=== PATIENT | female | born 1955 | race Caucasian/White ===

== ENCOUNTER → 2016-09-22 | Outpatient (CLI) | payer OTHER ==
[2016-09-22 09:43] LABS: Basophils # (auto) 0 uL; Basophils % (auto) 0.5 % (0.0-2.0); Eosinophils # (auto) 0.5 uL; Eosinophils % (auto) 6.4 % (0.0-7.0); Hematocrit 38.2 % (36.0-46.0); Hemoglobin 12.7 g/dL (12.2-16.2); Lymphocytes # (auto) 2.1 uL; Lymphocytes % (auto) 25.1 % (10.0-50.0); Mean Corpuscular Hemoglobin 30.6 pg (28.0-32.0); Mean Corpuscular Hgb Conc. 33.2 g/dL (32.0-36.0); Mean Corpuscular Volume 92.2 fL (80.0-100.0); Mean Platelet Volume 9.1 fL (7.4-10.4); Monocytes # (auto) 0.6 uL; Monocytes % (auto) 7.9 % (0.0-12.0); Neutrophils % (auto) 60.1 % (37.0-80.0); Platelet Count (auto) 264 10^3/uL (140-450); Red Cell Distribution Width 14.3 % (11.6-16.0); White Blood Cell 8.2 10^3/uL (4.4-10.8)
[2016-09-22 10:20] LABS: Albumin 3.8 g/dL (3.4-5.0); BUN/Creatinine Ratio 19.3; Bilirubin, Total 0.3 mg/dL (0.2-1.0); Calcium 9.1 mg/dL (8.5-10.1); Potassium 3.1 mmol/L (3.5-5.1); Total Protein 6.9 g/dL (6.4-8.2)
== END | disposition home or self-care (01) ==
LOC: LAB 09:07
PROVIDERS: ATTEND Internal Medicine
DX: E11.9 Type 2 diabetes mellitus without complications (principal); I10 Essential (primary) hypertension; F32.9 Major depressive disorder, single episode, unspecified
CPT/HCPCS: 36415; 80053; 80061; 82043; 83036; 84443; 85025

== ENCOUNTER → 2016-10-19 | Outpatient (CLI) | payer OTHER ==
[2016-10-19 12:01] LABS: Albumin 3.9 g/dL (3.4-5.0); BUN/Creatinine Ratio 17.4; Bilirubin, Total 0.5 mg/dL (0.2-1.0); Potassium 3.5 mmol/L (3.5-5.1); Total Protein 7.9 g/dL (6.4-8.2)
== END | disposition home or self-care (01) ==
LOC: LAB 10:28
PROVIDERS: ATTEND Internal Medicine
DX: E11.21 Type 2 diabetes mellitus with diabetic nephropathy (principal); E78.5 Hyperlipidemia, unspecified
CPT/HCPCS: 36415; 80053; 80061; 83036

== ENCOUNTER → 2016-12-21 | Outpatient (CLI) | payer OTHER ==
[2016-12-21 13:31] LABS: Basophils # (auto) 0 uL; Basophils % (auto) 0.5 % (0.0-2.0); CONDITION Y; Eosinophils # (auto) 0.4 uL; Eosinophils % (auto) 4.3 % (0.0-7.0); Hematocrit 38.5 % (36.0-46.0); Hemoglobin 12.9 g/dL (12.2-16.2); Lymphocytes # (auto) 1.8 uL; Lymphocytes % (auto) 21.4 % (10.0-50.0); Mean Corpuscular Hemoglobin 31.1 pg (28.0-32.0); Mean Corpuscular Hgb Conc. 33.4 g/dL (32.0-36.0); Mean Platelet Volume 9.3 fL (7.4-10.4); Monocytes # (auto) 0.6 uL; Neutrophils # (auto) 5.7 uL; Neutrophils % (auto) 66.8 % (37.0-80.0); Platelet Count (auto) 274 10^3/uL (140-450); Red Cell Distribution Width 13.5 % (11.6-16.0); White Blood Cell 8.5 10^3/uL (4.4-10.8)
[2016-12-21 13:58] LABS: Albumin 3.6 g/dL (3.4-5.0); BUN/Creatinine Ratio 23.5; Bilirubin, Total 0.2 mg/dL (0.2-1.0); Calcium 8.9 mg/dL (8.5-10.1); Potassium 3.4 mmol/L (3.5-5.1); Total Protein 6.7 g/dL (6.4-8.2)
== END | disposition home or self-care (01) ==
LOC: LAB 13:15
PROVIDERS: ATTEND Internal Medicine
DX: R79.0 Abnormal level of blood mineral (principal); Z11.2 Encounter for screening for other bacterial diseases
CPT/HCPCS: 36415; 80053; 84443; 85025; 86038; 86704; 86705; 86706; 86708; 86803

== ENCOUNTER 2017-02-23 06:09 | Inpatient (IN) | payer OTHER ==
[2017-02-21 12:41] LABS: Basophils # (auto) 0 uL; Basophils % (auto) 0.4 % (0.0-2.0); CONDITION Y; Eosinophils # (auto) 0.5 uL; Eosinophils % (auto) 6.2 % (0.0-7.0); Hematocrit 38.5 % (36.0-46.0); Lymphocytes # (auto) 1.6 uL; Lymphocytes % (auto) 18.5 % (10.0-50.0); Mean Corpuscular Hemoglobin 31.1 pg (28.0-32.0); Mean Corpuscular Hgb Conc. 33.7 g/dL (32.0-36.0); Mean Corpuscular Volume 92.4 fL (80.0-100.0); Mean Platelet Volume 10.3 fL (7.4-10.4); Monocytes # (auto) 0.6 uL; Monocytes % (auto) 7.1 % (0.0-12.0); Neutrophils % (auto) 67.8 % (37.0-80.0); Platelet Count (auto) 238 10^3/uL (140-450); Red Cell Distribution Width 13.4 % (11.6-16.0); White Blood Cell 8.9 10^3/uL (4.4-10.8)
[2017-02-21 13:03] LABS: Albumin 3.6 g/dL (3.4-5.0); BUN/Creatinine Ratio 28.4; Bilirubin, Total 0.3 mg/dL (0.2-1.0); Calcium 9.5 mg/dL (8.5-10.1); Potassium 3.5 mmol/L (3.5-5.1)
[2017-02-21 13:11] LABS: INR 0.92 (0.9-1.15); Partial Thromboplastin Time 24.3 sec (22.64-33.71)
[~2017-02-23] VITALS: Ht 162.6 cm; Wt 110.2 kg
[2017-02-23] MEDS ORDERED: ceFAZolin 1GM/50ML D5W 50 ML IV ONE (06:15)
[2017-02-23] MEDS ORDERED: POVIDONE IODINE 10 % TOPICAL OINT 30GM TOP ONE (06:51)
[2017-02-23] MEDS ORDERED: MEPERIDINE HCL (50 MG/ML) 1 ML VIAL ONE (06:55)
[2017-02-23] MEDS ORDERED: ROCURONIUM 10MG/ML 10ML VIAL IV ONE (06:55)
[2017-02-23] MEDS ORDERED: NEOSTIGMINE 1 MG/ML INJ (10mg/10ML VIAL) ONE (06:55)
[2017-02-23] MEDS ORDERED: KETOROLAC TROMETH 60MG/2ML VIAL IM ONE (06:55)
[2017-02-23] MEDS ORDERED: MORPHINE SULFATE ONE (06:55)
[2017-02-23] MEDS ORDERED: SODIUM CHLORIDE LOCK 10 ML ONE (06:55)
[2017-02-23] MEDS ORDERED: MIDAZOLAM HCL 1MG/1ML-2 ML VIAL ONE (06:55)
[2017-02-23] MEDS ORDERED: GLYCOPYRROLATE 0.2 MG/ML 1ML VIAL ONE (06:55)
[2017-02-23] MEDS ORDERED: ONDANSETRON HCL 4 MG/2 ML VIAL ONE (06:55)
[2017-02-23] MEDS ORDERED: fentaNYL CITRATE 100 MCG/2 ML VL ONE (06:55)
[2017-02-23] MEDS ORDERED: PROPOFOL 10 MG/ML 20 ML IV ONE (06:55)
[2017-02-23] MEDS ORDERED: METOCLOPRAMIDE HCL 5MG/ml INJ 2ml VIAL IV ONE (07:30)
[2017-02-23] MEDS: KETOROLAC TROMETH 30 MG/ML 1ML VIAL IV ONE ×2 (07:30→09:17)
[2017-02-23] MEDS ORDERED: hydrALAZINE HCL 20 MG/ML VL ONE (08:01)
[2017-02-23] MEDS ORDERED: MORPHINE SULF INJ 2 MG/ML SYRINGE 1ML IV PRN (08:15)
[2017-02-23] MEDS ORDERED: NITROGLYCERIN 0.4 MG SL TAB SL PRN (08:15)
[2017-02-23] MEDS: HYDROmorphone HCL 2 MG/ML VL IV PRN ×4 (08:33→09:04)
[2017-02-23] MEDS ORDERED: DOXAPRAM HCL 20 MG/ML 20ML VIAL INJ IV ONE (09:39)
[2017-02-23 11:30] VITALS: BP 125/67
[2017-02-23] MEDS: SODIUM CHLORIDE 0.9% 1,000 ML IV SCH (11:45)
[2017-02-23] MEDS ORDERED: ONDANSETRON HCL 4 MG/2 ML VIAL IV PRN (11:45)
[2017-02-23] MEDS ORDERED: DEXTROSE (50%) 50ML SYRG IV PRN (11:45)
[2017-02-23] MEDS ORDERED: LISINOPRIL 10 MG TAB PO ONE (12:00)
[2017-02-23] MEDS: ACCU-CHEK COMFORT CURVE STRIP VI SCH ×2 (12:00→18:00)
[2017-02-23] MEDS ORDERED: buPROPion HCL 100 MG TAB PO ONE (12:00)
[2017-02-23] MEDS: InsuLIN REG 1unit/0.01ml Soln (100units/ml) SC SCH ×2 (12:00→18:00)
[2017-02-23 13:11] VITALS: BP 125/67
[2017-02-23] MEDS: MORPHINE SULF INJ 2 MG/ML SYRINGE 1ML IV PRN ×2 (14:59→19:59)
[2017-02-23] MEDS ORDERED: GLIP-115 (16:50)
[2017-02-23] MEDS ORDERED: ATEN50TA (16:50)
[2017-02-23] MEDS ORDERED: LISI-285 (16:50)
[2017-02-23] MEDS ORDERED: POTA10TA51 (16:50)
[2017-02-23] MEDS ORDERED: TRAZ150T79 (16:50)
[2017-02-23 17:00] VITALS: BP 129/67
[2017-02-23] MEDS: HYDROcodone-ACET 5/325MG TAB PO PRN (17:43)
[2017-02-23] MEDS: buPROPion HCL 100 MG TAB PO SCH (18:52)
[2017-02-23 22:00] VITALS: BP 147/68
[2017-02-24] MEDS: HYDROcodone-ACET 5/325MG TAB PO PRN (00:36)
[2017-02-24] MEDS ORDERED: POTA10TA51 PO (02:03)
[2017-02-24] MEDS ORDERED: GLIP-115 PO (02:03)
[2017-02-24] MEDS ORDERED: ATEN50TA PO (02:03)
[2017-02-24] MEDS ORDERED: LISI20TA10 PO (02:03)
[2017-02-24] MEDS ORDERED: TRAZ150T79 PO (02:03)
[2017-02-24] MEDS: SODIUM CHLORIDE 0.9% 1,000 ML IV SCH (04:26)
[2017-02-24 05:00] VITALS: BP 146/98
[2017-02-24] MEDS: InsuLIN REG 1unit/0.01ml Soln (100units/ml) SC SCH ×2 (05:45)
[2017-02-24] MEDS: ACCU-CHEK COMFORT CURVE STRIP VI SCH ×2 (05:45)
[2017-02-24] MEDS: MORPHINE SULF INJ 2 MG/ML SYRINGE 1ML IV PRN ×2 (05:52→10:25)
[2017-02-24] MEDS: buPROPion HCL 100 MG TAB PO SCH (06:05)
[2017-02-24 06:25] LABS: Basophils # (auto) 0 uL; Basophils % (auto) 0.1 % (0.0-2.0); Eosinophils # (auto) 0 uL; Eosinophils % (auto) 0.1 % (0.0-7.0); Hematocrit 36.7 % (36.0-46.0); Hemoglobin 12.5 g/dL (12.2-16.2); Lymphocytes # (auto) 2.1 uL; Lymphocytes % (auto) 14.6 % (10.0-50.0); Mean Corpuscular Hemoglobin 31.1 pg (28.0-32.0); Mean Corpuscular Hgb Conc. 33.9 g/dL (32.0-36.0); Mean Corpuscular Volume 91.6 fL (80.0-100.0); Mean Platelet Volume 9.8 fL (6.9-10.8); Monocytes % (auto) 7.1 % (0.0-12.0); Neutrophils # (auto) 11.2 uL; Neutrophils % (auto) 78.1 % (37.0-80.0); Platelet Count (auto) 205 10^3/uL (140-450); Red Cell Distribution Width 13.5 % (11.8-14.3); White Blood Cell 14.3 10^3/uL (4.4-10.8)
[2017-02-24 06:36] LABS: Albumin 3.5 g/dL (3.4-5.0); BUN/Creatinine Ratio 22.8; Calcium 9.7 mg/dL (8.5-10.1); Potassium 3.9 mmol/L (3.5-5.1)
[2017-02-24 06:39] LABS: Bilirubin, Total 0.4 mg/dL (0.2-1.0); Total Protein 6.8 g/dL (6.4-8.2)
[2017-02-24 09:20] VITALS: BP 153/79
[2017-02-24] MEDS ORDERED: LISINOPRIL 10 MG TAB PO SCH (10:00)
[2017-02-24] MEDS ORDERED: ATENOLOL 25 MG TAB PO SCH (10:00)
[2017-02-24 11:10] VITALS: BP 153/79
== END 2017-02-24 12:15 | disposition home or self-care (01) | DRG 418 ==
LOC: SUR 06:09 → EAST 06:10
PROVIDERS: ADMIT Surgery; ATTEND Internal Medicine
PROC: 0FT44ZZ Resection of Gallbladder, Percutaneous Endoscopic Approach (ICD-10-PCS; principal; 2017-02-23 07:18)
DX: K80.10 Calculus of gallbladder with chronic cholecystitis without obstruction (principal); Z68.41 Body mass index [BMI] 40.0-44.9, adult; I10 Essential (primary) hypertension; E78.5 Hyperlipidemia, unspecified; F32.9 Major depressive disorder, single episode, unspecified; F41.9 Anxiety disorder, unspecified; E11.9 Type 2 diabetes mellitus without complications; E66.9 Obesity, unspecified; Z90.49 Acquired absence of other specified parts of digestive tract; Z88.6 Allergy status to analgesic agent; Z79.899 Other long term (current) drug therapy
CPT/HCPCS: 36415; 80053; 82962; 83036; 85025; 85610; 85730; 86850; 86900; 86901; J0690; J1815; J1885; J2250; J2405; J2704

== ENCOUNTER → 2017-05-23 | Outpatient (CLI) | payer OTHER ==
[~2017-05-23] MED LIST: ATEN50TA PO; GLIP-115 PO; LISI20TA10 PO; POTA10TA51 PO; TRAZ150T79 PO
[2017-05-23 10:11] LABS: BUN/Creatinine Ratio 22.1; Bilirubin, Total 0.3 mg/dL (0.2-1.0); Calcium 9.3 mg/dL (8.5-10.1); Potassium 3.8 mmol/L (3.5-5.1); Total Protein 7.1 g/dL (6.4-8.2)
[2017-05-23 10:17] LABS: Basophils # (auto) 0.1 uL; Basophils % (auto) 0.8 % (0.0-2.0); Eosinophils # (auto) 0.4 uL; Eosinophils % (auto) 5.2 % (0.0-7.0); Hematocrit 42.1 % (36.0-46.0); Hemoglobin 14.3 g/dL (12.2-16.2); Lymphocytes # (auto) 1.7 uL; Lymphocytes % (auto) 20.2 % (10.0-50.0); Mean Corpuscular Hemoglobin 31.8 pg (28.0-32.0); Mean Corpuscular Volume 93.5 fL (80.0-100.0); Mean Platelet Volume 9.3 fL (6.9-10.8); Monocytes # (auto) 0.7 uL; Monocytes % (auto) 8.9 % (0.0-12.0); Neutrophils # (auto) 5.4 uL; Neutrophils % (auto) 64.9 % (37.0-80.0); Nucleated Red Blood Cells % 0.1 %; Platelet Count (auto) 217 10^3/uL (140-450); Red Cell Distribution Width 13.4 % (11.8-14.3); White Blood Cell 8.3 10^3/uL (4.4-10.8)
== END | disposition home or self-care (01) ==
LOC: LAB 09:01
PROVIDERS: ATTEND Internal Medicine
DX: Z12.11 Encounter for screening for malignant neoplasm of colon (principal); I10 Essential (primary) hypertension; E11.9 Type 2 diabetes mellitus without complications; E03.9 Hypothyroidism, unspecified; E78.5 Hyperlipidemia, unspecified; R80.9 Proteinuria, unspecified
CPT/HCPCS: 36415; 80053; 80061; 82043; 83036; 84443; 85025

== ENCOUNTER → 2017-05-30 | Outpatient (CLI) | payer OTHER | END | disposition home or self-care (01) | LOC: LAB 13:07 | PROVIDERS: ATTEND Internal Medicine | DX: Z12.11 Encounter for screening for malignant neoplasm of colon (principal); I10 Essential (primary) hypertension; E11.9 Type 2 diabetes mellitus without complications; E03.9 Hypothyroidism, unspecified; E78.5 Hyperlipidemia, unspecified; R80.9 Proteinuria, unspecified | CPT/HCPCS: 82270 ==

== ENCOUNTER → 2018-01-30 | Outpatient (CLI) | payer OTHER ==
[2018-01-30 11:02] LABS: Basophils # (auto) 0 uL; Basophils % (auto) 0.6 % (0.0-2.0); Eosinophils # (auto) 0.5 uL; Eosinophils % (auto) 6.9 % (0.0-7.0); Hemoglobin 13.9 g/dL (12.2-16.2); Lymphocytes # (auto) 1.6 uL; Lymphocytes % (auto) 22.4 % (10.0-50.0); Mean Corpuscular Hemoglobin 32.1 pg (28.0-32.0); Mean Corpuscular Hgb Conc. 33.8 g/dL (32.0-36.0); Monocytes # (auto) 0.5 uL; Monocytes % (auto) 7.4 % (0.0-12.0); Neutrophils # (auto) 4.3 uL; Neutrophils % (auto) 62.7 % (37.0-80.0); Nucleated Red Blood Cells % 0.1 %; Platelet Count (auto) 200 10^3/uL (140-450); Red Blood Cells 4.31 10^6/uL (4.0-5.20); Red Cell Distribution Width 13.1 % (11.8-14.3); White Blood Cell 6.9 10^3/uL (4.4-10.8)
[2018-01-30 13:06] LABS: Albumin 3.7 g/dL (3.4-5.0); BUN/Creatinine Ratio 17.4; Bilirubin, Total 0.4 mg/dL (0.2-1.0); Calcium 9.1 mg/dL (8.5-10.1); Potassium 3.3 mmol/L (3.5-5.1); Total Protein 6.8 g/dL (6.4-8.2)
== END | disposition home or self-care (01) ==
LOC: LAB 08:28
PROVIDERS: ATTEND Internal Medicine
DX: I10 Essential (primary) hypertension (principal); E11.22 Type 2 diabetes mellitus with diabetic chronic kidney disease; R21 Rash and other nonspecific skin eruption; Z88.6 Allergy status to analgesic agent
CPT/HCPCS: 36415; 80053; 80061; 82043; 83036; 84443; 85025

== ENCOUNTER → 2018-02-03 | Outpatient (CLI) | payer OTHER | END | disposition home or self-care (01) | LOC: LAB 13:11 | PROVIDERS: ATTEND Internal Medicine | DX: I12.9 Hypertensive chronic kidney disease with stage 1 through stage 4 chronic kidney disease, or unspecified chronic kidney disease (principal); E11.22 Type 2 diabetes mellitus with diabetic chronic kidney disease; N18.9 Chronic kidney disease, unspecified; R21 Rash and other nonspecific skin eruption | CPT/HCPCS: 82270 ==

== ENCOUNTER → 2018-11-27 | Day surgery (SDC) | payer OTHER ==
[2018-11-23 10:56] LABS: Basophils # (auto) 0.1 uL; Basophils % (auto) 0.8 % (0.0-2.0); Eosinophils # (auto) 0.5 uL; Eosinophils % (auto) 6.7 % (0.0-7.0); Hematocrit 38.9 % (36.0-46.0); Hemoglobin 13.2 g/dL (12.2-16.2); Lymphocytes # (auto) 1.6 uL; Lymphocytes % (auto) 20.8 % (10.0-50.0); Mean Corpuscular Hemoglobin 32.7 pg (28.0-32.0); Mean Corpuscular Hgb Conc. 34.1 g/dL (32.0-36.0); Monocytes # (auto) 0.7 uL; Monocytes % (auto) 8.6 % (0.0-12.0); Neutrophils # (auto) 4.8 uL; Neutrophils % (auto) 63.1 % (37.0-80.0); Platelet Count (auto) 177 10^3/uL (140-450); Red Blood Cells 4.05 10^6/uL (4.0-5.20); Red Cell Distribution Width 12.9 % (11.8-14.3); White Blood Cell 7.6 10^3/uL (4.4-10.8)
[2018-11-23 11:34] LABS: INR < 0.93 (0.9-1.15); Partial Thromboplastin Time 22.6 sec (23.64-32.05)
[~2018-11-27] VITALS: Ht 162.6 cm; Wt 94.3 kg
[~2018-11-27] MED LIST changes: +BUPR-60 PO; +MIDAZOLAM HCL 5 MG/ML-1ML VIAL ONE; +SODIUM CHLORIDE LOCK 10 ML ONE; +diphenhdrAMINE HCL 50 MG/1 ML VL ONE; +fentaNYL CITRATE 100 MCG/2 ML VL ONE
[2018-11-27 11:43] VITALS: BP 150/80
== END | disposition home or self-care (01) ==
LOC: GI 08:54
PROVIDERS: ATTEND Internal Medicine Gastroenterology
DX: Z12.11 Encounter for screening for malignant neoplasm of colon (principal); D12.2 Benign neoplasm of ascending colon; D12.3 Benign neoplasm of transverse colon; K63.89 Other specified diseases of intestine; K64.9 Unspecified hemorrhoids; Z88.8 Allergy status to other drugs, medicaments and biological substances; Z79.899 Other long term (current) drug therapy; Z98.890 Other specified postprocedural states
CPT/HCPCS: 36415; 45380; 82962; 85025; 85610; 85730; J1200; J2250; J3010; J7030; 99152

== ENCOUNTER → 2019-01-30 | Outpatient (CLI) | payer OTHER ==
[~2019-01-30] MED LIST changes: -GLIP-115 PO; +GLIP5TAB12 PO; -MIDAZOLAM HCL 5 MG/ML-1ML VIAL ONE; -SODIUM CHLORIDE LOCK 10 ML ONE; -diphenhdrAMINE HCL 50 MG/1 ML VL ONE; -fentaNYL CITRATE 100 MCG/2 ML VL ONE
[2019-01-30 12:28] LABS: Potassium 3.2 mmol/L (3.5-5.1)
[2019-01-30 12:40] LABS: Albumin 3.6 g/dL (3.4-5.0); BUN/Creatinine Ratio 23.3; Bilirubin, Total 0.4 mg/dL (0.2-1.0); Calcium 9.6 mg/dL (8.5-10.1); Total Protein 7.3 g/dL (6.4-8.2)
== END | disposition home or self-care (01) ==
LOC: LAB 10:24
PROVIDERS: ATTEND Internal Medicine
DX: E78.5 Hyperlipidemia, unspecified (principal); I10 Essential (primary) hypertension; E11.21 Type 2 diabetes mellitus with diabetic nephropathy
CPT/HCPCS: 36415; 80053; 80061; 82043; 82306; 83036; 84443

== ENCOUNTER → 2019-03-21 | Outpatient (CLI) | payer OTHER ==
[~2019-03-21] MED LIST changes: -LISI20TA10 PO; +LISI20TA33 PO
[2019-03-21 09:15] LABS: Calcium 9.6 mg/dL (8.5-10.1); Potassium 3.8 mmol/L (3.5-5.1)
== END | disposition home or self-care (01) ==
LOC: LAB 08:37
PROVIDERS: ATTEND Internal Medicine
DX: E87.6 Hypokalemia (principal)
CPT/HCPCS: 36415; 80048

== ENCOUNTER 2025-03-10 13:04 | Emergency (ER) | payer MEDICARE, OTHER ==
[~2025-03-10] VITALS: Ht 162.6 cm; Wt 68.5 kg
[~2025-03-10 13:04] MED LIST changes: -GLIP5TAB12 PO; +GLIP5TAB21 PO; -LISI20TA33 PO; +LISI20TA60 PO; +POTA-36 PO; -POTA10TA51 PO; -TRAZ150T79 PO; +TRAZ1TAB12 PO
--- NOTE | 2025-03-10 15:55 | ED.PDOC ---
HPI Comments 69-year-old female patient presents to the clinic for slip and fall in the bathtub. Pt denies LOC. Pt denies nausea, vomiting , blurred vision. and pt deny any personality changes. Pt denies any taking any blood thinners. Pt ambulates with a steady gait. Pt denies any dizziness. Chief Complaint: Laceration Time Seen by MD: 13:20 Reviewed Notes: Nurses Notes, Medications, Allergies Allergies: Coded Allergies: Naproxen (Verified Allergy, Unknown, 11/23/18) Home Meds Reported Medications Bupropion Hcl (Bupropion Hcl Sr) 150 Mg Tab, 150 MG PO DAILY, TAB 11/23/18 Trazodone Hcl (Trazodone Hcl) 150 Mg Tab, 150 MG PO DAILY, MG 02/24/17 Potassium Chloride (POTASSIUM CHLORIDE CR) 10 Meq Tb, 1 TAB PO BID, #30 TAB 5 Refills 02/24/17 Lisinopril & Hydrochlorothiazi (Zestoretic) 1 Tab Tab, 1 TAB PO DAILY, #30 TAB 5 Refills 02/24/17 Glipizide (Glipizide) 5 Mg Tab, 5 MG PO BID for 30 Days, MG 02/24/17 Atenolol (Atenolol) 50 Mg Tab, 50 MG PO BID for 30 Days, MG 02/24/17 Mode of Arrival: Ambulatory Severity: Mild Severity of Laceration: Controlled Bleeding Complexity: Simple Timing: Hours Laceration Location: Head Mechanism: Blunt Trauma Laceration Length (cm): 3 Skin Type: Jagged Depth of Injury: Skin Tendon Injury: 0% Capillary Refill: < 3 seconds Tender: Mild Discharge: Bloody Erythema: None Associated Signs and Symptoms: None Past Medical History 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: Denies all HEEL SHAPER Hx Family History Family History: Reviewed,noncontributory to illness Social History Smoker: Non-Smoker Alcohol: Denies ETOH Use Drugs: Denies Drug Use Lives In: Home Constitutional: denies: chills, diaphoresis, fatigue, fever, malaise, sweats, weakness, others EENTM: denies: blurred vision, double vision, ear bleeding, ear discharge, ear drainage, ear pain, ear ringing, eye pain, eye redness, hearing loss, mouth pain, mouth swelling, nasal discharge, nose bleeding, nose congestion, nose pain, photophobia, tearing, throat pain, throat swelling, voice changes, others Respiratory: denies: cough, hemoptysis, orthopnea, SOB at rest, shortness of breath, SOB with excertion, stridor, wheezing, others Cardiovascular: denies: chest pain, dizzy spells, diaphoresis, Dyspnea on exertion, edema, irregular heart beat, left arm pain, lightheadedness, palpitations, PND, syncope, others Gastrointestinal: denies: abdomen distended, abdominal pain, blood streaked bowels, constipated, diarrhea, dysphagia, difficulty swallowing, hematemesis, melena, nausea, poor appetite, poor fluid intake, rectal bleeding, rectal pain, vomiting, others Genitourinary: denies: abnormal vagina bleeding, burning, dyspareunia, dysuria, flank pain, frequency, hematuria, incontinence, pain, , vagina discharge, urgency, others Neurological: denies: dizziness, fainting, headache, left sided numbness, left sided weakness, numbness, paresthesia, pre-existing deficit, right sided numbness, right sided weakness, seizure, speech problems, tingling, tremors, weakness, others Musculoskeletal: denies: back pain, gout, joint pain, joint swelling, muscle pain, muscle stiffness, neck pain, others Integumetry: reports: laceration (3cm laceration to the base of the scalp withe surrounding inflammation, no erythema) Allergic/Immunocompromised: denies: Difficulty Healing, Frequent Infections, Hives, Itching, others Hematologic/Lymphatic: denies: anemia, blood clots, easy bleeding, easy bruising, swollen glands, others Endocrine: denies: excessive hunger, excessive sweating, excessive thirst, excessive urination, flushing, intolerance to cold, intolerance to heat, unex plained weight gain, unexplained weight loss, others Psychiatric: denies: anxiety, bipolar disorder, depression, hopeless, panic disorder, schizophrenia, sleepless, suicidal, others All Other Systems: Reviewed and Negative Physical Exam General Appearance: No Apparent Distress, Normal HEENT: Normal ENT Inspection, Pharynx Normal, TMs Normal Neck: Full Range of Motion, Non-Tender, Normal, Normal Inspection Respiratory: Chest Non-Tender, Lungs Clear, No Accessory Muscle Use, No Respiratory Distress, Normal Breath Sounds Cardiovascular: No Edema, No JVD, No Murmur, No Gallop, Normal Peripheral Puls es, Regular Rate/Rhythm Breast Exam: Deferred Gastrointestinal: No Organomegaly, Non Tender, No Pulsatile Mass, Normal Bowel Sounds, Soft Genitalia: Deferred Pelvic: Deferred Rectal: Deferred Extremities: No calf tenderness, Normal capillary refill, Normal inspection, Normal range of motion, Non-tender, No pedal edema Musculoskeletal : Apperance: Normal Neurologic: 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 Was a procedure done?: Yes Sedation Sedation?: No Informed consent obtained: Yes Laceration Repair : Location 3 cm laceration on the scalp near the base of the skull Length 3 cm Anesthetic: Nothing Laceration Repair Prep: Saline, Betadine Laceration Repair: [place] (4 robyn) Informed consent obtained: Yes Risks, benefits, and alternati: Yes Differential diagnosis Generic Laceration: Hematoma, Abrasion/Contusion, Laceration Differential Diagnosis: Closed Head Injury X-Ray, Labs, Meds, VS Vital Signs Date Time Temp Pulse Resp B/P (MAP) Pulse Ox O2 Delivery O2 Flow Rate FiO2 03/10/25 16:31 98.7 78 17 149/89 (109) 98 98.7 03/10/25 16:31 87 17 98 Room Air 03/10/25 13:10 98.1 62 16 116/84 95 98.1 Current Medications Medications (Trade) Dose Ordered Sig/Jackelyn Route Start Time Stop Time Status Last Admin Diphtheria/ Tetanus/Acell Pertussis (Boostrix T-Dap) 0.5 ml ONCE ONCE IM 03/10/25 16:00 03/10/25 16:09 DC 03/10/25 16:17 Neomycin/ Polymyxin/ Bacitracin (Neosporin Topical) 1 applic BID TOP 03/10/25 22:00 03/10/25 16:33 DC 03/10/25 16:20 X-Ray, Labs, Meds, VS Comment Patient advised to follow up with the primary care physician in 7-10 days for wound follow up and suture removal. Pt advised to monitor wounds for signs of infection. Pt advised to come into the ER for any changes in neurological status, any nausea or vomiting. On re-evaluation patient has symptomatic improvement. Patient is stable for discharge at this time. All test results and diagnostic imaging have been interpreted. All diagnostic findings, discharge care, and education instruction provided to the patient. Follow-up with PCP in 2-3 days Patient verbalized understanding, discharge instructions and agrees to treatment plan Vital signs are stable Patient is ambulatory Patient advised of which symptoms necessitate a return visit to the emergency room. Patient to return emergency room for any new worsening symptoms. Patient is aware that the purpose of this visit is for an acute medical emergency requiring emergent stabilization. Chronic conditions, including malignancies have not been ruled out. Patient is instructed to follow up with PCP as directed for continued care and workup. If unable to arrange follow up, patient is to return to the emergency room for reassessment. Patient was given verbal and written discharge instructions and acknowledges understanding Time of 1ST Reevaluation: 16:10 Reevaluation 1ST: Improved Patient Education/Counseling: Diagnosis, Treatment, Prognosis Family Education/Counseling: Diagnosis, Treatment, Prognosis Departure 1 Departure Time of Disposition: 16:11 Impression: Primary Impression: Occipital scalp laceration Qualified Codes: S01.01XA - Laceration without foreign body of scalp, initial encounter Disposition: 01 HOME / SELF CARE / HOMELESS Condition: Stable Additional Instructions: Discharge Note: Continue on your medications. Drink plenty of fluids. Follow up with your primary Dr. Take your prescriptions as ordered. If your condition becomes worse call and follow up with your primary Dr. for instructions or return to the ER if needed. Have the stitches/robyn removed in 7-10 days. Keep wound clean and dry. Have a wound check in 2 days. Thank you for visiting [facility]. Discharged With: Self, Spouse Critical Care Note Critical Care Time?: No Stability Stability form required: No Heart Score Heart Score: Heart Score Response (Comments) Value History N/A 0 EKG N/A 0 Age N/A 0 Risk Factors N/A 0 Troponin N/A 0 Total 0 SANGEETA BOOTHE [facility] Mar 10, 2025 15:55
[2025-03-10] MEDS: NEOMYCIN-BACITRACIN-POLYM 15GM TOP OINT TOP SCH (16:16)
[2025-03-10] MEDS: TETANUS-DIPTH-ACEL PERTUSSIS 0.5ML SYR Tdap IM ONE (16:17)
[2025-03-10 16:31] VITALS: BP 149/89; PULSE 87; RESP 17; TEMP 98.7; O2SAT 98
== END 2025-03-10 16:34 | disposition home or self-care (01) ==
LOC: ER 13:04
DX: S01.01XA Laceration without foreign body of scalp, initial encounter (principal); Z79.899 Other long term (current) drug therapy; Z88.6 Allergy status to analgesic agent; W18.2XXA Fall in (into) shower or empty bathtub, initial encounter; Y93.E1 Activity, personal bathing and showering; Y92.89 Other specified places as the place of occurrence of the external cause; Y99.8 Other external cause status
CPT/HCPCS: 12002; 90471; 90715